=== PATIENT | male | born 1995 | race Caucasian/White ===

== ENCOUNTER 2024-12-01 10:39 | Emergency (ER) | payer MEDICAID ==
[~2024-12-01] VITALS: Ht 172.7 cm; Wt 85.0 kg
[2024-12-01 10:46] VITALS: O2SAT 99
[2024-12-01] MEDS ORDERED: IBUP-2029 MT (12:32)
[2024-12-01 12:55] VITALS: BP 122/76; PULSE 81; RESP 18; TEMP 36.4; O2SAT 99
[2024-12-01] MEDS: KETOROLAC 30MG/ML VIAL IM STA (12:55)
== END 2024-12-01 12:59 | disposition home or self-care (01) ==
LOC: ER 11:59
DX: M54.50 Low back pain, unspecified (principal)
CPT/HCPCS: 99283; 96372; J1885